=== PATIENT | male | born 1960 | race Caucasian/White ===

== ENCOUNTER 2018-01-31 01:01 | Inpatient (IN) | payer OTHER ==
[~2018-01-31] VITALS: Ht 175.3 cm; Wt 119.7 kg
[~2018-01-31 01:01] MED LIST: ANORO ELLIPTA1 EACH; ASPIRIN EC81 M1 PO; IMITREX50 M1 PO; LISINOPRIL20 M1 PO; VERAPAMIL ER180 M1 PO
--- NOTE | 2018-01-31 10:40 | RADIOLOGY REPORT ---
EXAMINATION: Intraoperative fluoroscopy CLINICAL INFORMATION: Right iliac arteriogram with angioplasty COMPARISON: Peripheral arterial testing 12/20/2017 TECHNIQUE: Intraoperative fluoroscopy was provided for use by Dr. Olguin. A total of 9 images were saved to PACS. A radiologist was not present during imaging. TOTAL FLUOROSCOPIC TIME: 5 minutes and 18 seconds FINDINGS\E\IMPRESSION: Intraoperative fluoroscopy provided for use by Dr. Olguin. Please see operative note for detailed findings.
--- NOTE | 2018-01-31 11:10 | Admission Core Measures ---
Acute Coronary Syndrome (CM) ACS Core Measures Acute Coronary Syndrome Diagnosis No Congestive Heart Failure (NEW) CHF Core Measures Congestive Heart Failure Diagnosis No Cerebrovascular Accident CVA Core Measures CVA/TIA Diagnosis No Venous Thromboembolism VTE Core Fercho (View Protocol) VTE Risk Factors Surgery No Mechanical VTE Prophylaxis d/t N/A MechProphylax Ordered No VTE Pharm Prophylaxis d/t NA PharmProphylax ordered Problem List As ranked by this Provider includes Assessment & Plan 1. S/P insertion of iliac artery stent HOME MEDS Home Med List Aspirin (Ecotrin*) 81 MG TABLET.DR 1 TAB PO DAILY CARDIAC/VASCULAR (Reported) Lisinopril 20 MG TABLET 1 TAB PO DAILY HTN (Reported) Sumatriptan Succinate (Imitrex) 50 MG TABLET 1 TAB PO AD PRN migraine ( Reported) Verapamil HCl (Verapamil ER) 180 MG TABLET.ER 1 TAB PO DAILY HTN (Reported)
--- NOTE | 2018-01-31 11:12 | Surg Short-stay <48hrs Dis Sum ---
Visit Information Visit Dates Admission Date: 01/31/18 Discharge Date: 01/31/18 Surgical Short Stay DC Summary Admission Diagnosis: Peripheral arterial disease Final Diagnosis: SAME, S/P ILIAC STENT Procedure(s): Iliac stent, right groin cutdown - see operative report, prevena vac placement Summary/Significant Findings: Pt underwent a right iliac stent placement via a right groin cutdown. He tolerated the procedure without immediate complications and was brought to the PACU in stable condition. He was transferred to the floor and post op was able to void, his pain was well controlled and he was able to ambulate. He was cleared for discharge home. Condition at Discharge: good Discharge Disposition: home or self care Discharge instructions provided to patient/family: Yes Post discharge follow-up plan: Dr Olguin in one week, call sooner if needed Copies to: Sharif CARMONA,Iggy
--- NOTE | 2018-01-31 11:16 | Patient Discharge Instructions ---
Discharge Instructions General Discharge Information You were seen/treated for: Peripheral arterial disease You had these procedures: Iliac stent placement vie a right groin cutdown, wound vacuum placement Watch for these problems: temp>101, drainage of wound, troubles with the wound vacuum Other wound care: Keep the area around the incision and the vac dry Special Instructions: Call for an appointment to be seen early next week in follow up with Dr Olguin and for wound vac removal Diet Continue normal diet: Yes Activity Activity Self Limited: Yes Acute Coronary Syndrome Inclusion Criteria At DC or during hospital stay patient has or had the following: ACS DIAGNOSIS No Discharge Core Measures Meds if any: Prescribed or Continued at Discharge Meds if any: NOT Prescribed or Continued at Discharge Congestive Heart Failure Inclusion Criteria At DC or during hospital stay patient has or had the following: CHF DIAGNOSIS No Discharge Core Measures Meds if any: Prescribed or Continued at Discharge Meds if any: NOT Prescribed or Continued at Discharge Cerebrovascular accident Inclusion Criteria At DC or during hospital stay patient has or had the following: CVA/TIA Diagnosis No Discharge Core Measures Meds if any: Prescribed or Continued at Discharge Meds if any: NOT Prescribed or Continued at Discharge Venous thromboembolism Inclusion Criteria VTE Diagnosis No VTE Type NONE VTE Confirmed by (Test) NONE Discharge Core Measures - Per Current guidelines, there needs to be overlap - treatment for the first 5 days of Warfarin therapy. - If discharged on Warfarin prior to 5 days of - overlap therapy, the patient will need to be - assessed for post discharge needs including - *Post discharge parental anticoagulation - *Warfarin and/or parental anticoagulation education - *Follow up date to check INR post discharge At least 5 days overlap therapy as Inpatient No Meds if any: Prescribed or Continued at Discharge Note: Overlap Therapy is Warfarin and Anticoagulant Meds if any: NOT Prescribed or Continued at Discharge
[2018-01-31] MEDS ORDERED: PLAVIX75 M1 PO (11:21)
[2018-01-31] MEDS ORDERED: PERCOCET 5-3251 EACH PO (11:21)
--- NOTE | 2018-01-31 12:29 | Operative Report ---
Operative/Inv Procedure Report Surgery Date: 01/31/18 Name of Procedure: 1. Right groin cutdown 2. aortogram 3. angioplasty and stenting of the right common and external iliac with icast 8mm x 59 stent. 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 I had previously performed a diagnostic angiogram in the office but given the location and length of the occlusion I decided to proceed with further intervention in the operating room as I felt there was a high probability of needing to do a fem-fem bypass. Therefore I brought the patient to the operating room with a plan to perform a right leg into and intervention possible fem-fem bypass. I explained the risks benefits alternative surgery informed consent was obtained placed to chart Operative/Procedure Note Note: The patient was brought to the operating room he was placed under general anesthesia in a supine position. A radial A-line Ariza were placed. We then performed a time out to verify the patient's name of data and MRN, in accordance with the [facility] time out policy. Prophylactic antibiotics were given prior to the procedure started. We then proceeded to prepare the patient's bilateral groins in a sterile fashion. I used the ultrasound to explore the right common femoral artery. However it appeared to be very small and given the patient's body habitus it was quite deep. As we would likely need to use a large sheath and possibly do a fem-fem bypass I decided to do a right groin cut down for access. I proceeded to janine the course of the common femoral artery with the ultrasound and then I used a 15 blade scalpel to make a skin incision in a vertical fashion over top of the artery. We then used the Bovie to dissect down through the subcutaneous tissue tying off any lymphatics or venous branches that we encountered. We then identified the common femoral artery and began circumferentially dissect this free and continued our dissection down to the profunda and superficial femoral artery. We then obtained control of the common femoral,superficial femoral, and profunda femoral artery with vessel loops. The patient was fully heparinized. I then used a micropuncture set to access the right common femoral artery. We placed a Luciano wire into the iliac artery and upsized to a 5-Kittitian sheath. Using an over .035 Glidewire and catheter we were able to cross the iliac occlusion into the aorta. We then shot an aortogram which demonstrated the follwing. The renal arteries were opacified but poorly visualized. It confirmed we were within the true lumen of the aorta. There was occlusion of right common iliac artery, the internal iliac artery, and the proximal external iliac artery. The mid and distal right external iliac artery appeared patent without any significant disease. The right common femoral artery also appeared patent without any significant disease. The left common external and internal iliac arteries were all patent without any significant disease. At this time we placed a stiff .035 wire into the aorta and we then predilated the area of occlusion with a 5 mm x 60 balloon. Followup angiogram showed a dissection within the right common iliac artery. We then used an 8 mm x 59 Icast stent which we deployed beginning from the proximal common iliac artery and extending into the external iliac artery. The internal iliac artery was occluded so we covered this with the stent. Completion angiogram showed significant improvement of flow but there was still an area of narrowing at the very proximal common iliac artery which we dilated once more with 8 mm balloon. At this time we were satisfied with our completion angiogram there is a very good pulse within the artery. We then proceeded to clamp the common femoral artery both proximally and distally and removed the sheath. We used the interrupted 6-0 Prolene to close the arteriotomy. We then confirmed there was good flow within the SFA and profunda artery. This time we were satisfied with her result we obtain hemostasis who some Gelfoam. Wound is copiously irrigated we then closed the deep layer with 2-0 Vicryl closed the subcutaneous and deep dermal layer with 3-0 Vicryl and the skin was closed with 4-0 Monocryl all counts were accurate at the end of the case a a sterile. A dressing was placed in the right groin incision. Patient was extubated and transferred to recovery room in stable condition.
[2018-01-31 12:49] VITALS: BP 132/74
[2018-01-31 14:41] VITALS: BP 130/80
--- NOTE | 2018-01-31 15:03 | PN- Vascular Surgery ---
Subjective Subjective: POC pt in bed with moderate right groin pain. says that paresthesias in right foot are improving. stillw ith pain in right foot. tolerating regular diet, no nausea. voiding, ambulating Objective Vital Signs and I&Os Vital Signs Date Time Temp Pulse Resp B/P B/P Pulse O2 O2 Flow FiO2 Mean Ox Delivery Rate 01/31 1441 97.8 81 20 130/80 94 Room Air 01/31 1249 98.8 69 18 132/74 96 Intake & Output 01/31 1600 01/31 0800 01/31 0000 01/30 1600 01/30 0800 01/30 0000 Intake Total 465 Output Total 250 Balance 215 Intake, IV 225 Intake, Oral 240 Number 0 Bowel Movements Output, Urine 250 Patient 264 lb Weight Physical Exam: gen- NAD resp- clear cardiac- RRR ext- riught groin with pravena in place on suction, no drainage in canister. No erythema or swelling arouind incision. No signs of hematoma. 1+ right DP pulse. PT no appreciated. distal sensory and motor function intact Current Medications: Current Medications Sig/Desire Start time Last Medication Dose Route Stop Time Status Admin Acetaminophen 650 MG Q6P PRN 01/31 1315 AC PO Acetaminophen 0 .STK-MED ONE 01/31 722 DC IV Albuterol Sulfate 2 PUF Q4P PRN 01/31 1315 AC INH Albuterol Sulfate 2 PUF Q4 PRN 01/31 1115 DC INH Aspirin Buffered 81 MG DAILY 02/01 900 DC PO Aspirin Buffered 81 MG DAILY 02/01 900 AC PO Clopidogrel Bisulfate 75 MG DAILY 02/01 900 AC PO Clopidogrel Bisulfate 150 MG ONCE ONE 01/31 1130 DC PO 01/31 1131 Dextrose/Sodium 1,000 ML .[id number] 01/31 1315 AC 01/31 Chloride IV 1346 Docusate Sodium 100 MG BID 01/31 2100 AC PO Fentanyl Citrate 0 .STK-MED ONE 01/31 0723 DC .ROUTE Hydromorphone HCl 0 .STK-MED ONE 01/31 722 DC .ROUTE Lisinopril 20 MG DAILY 02/01 900 DC PO Lisinopril 20 MG DAILY 02/01 900 AC PO Midazolam HCl 0 .STK-MED ONE 01/31 07 DC .ROUTE Ondansetron HCl 4 MG Q6P PRN 01/31 1315 AC IV Oxycodone/ 1 TAB Q4P PRN 01/31 1315 AC Acetaminophen PO Oxycodone/ 2 TAB Q4P PRN 01/31 1315 AC 01/31 Acetaminophen PO 1345 Sumatriptan Succinate 50 MG DAILY NEEDED PRN 01/31 1315 AC PO Sumatriptan Succinate 50 MG DAILY NEEDED PRN 01/31 1100 DC PO Verapamil HCl 180 MG DAILY 02/01 0900 DC PO Verapamil HCl 180 MG DAILY 02/01 0900 AC PO Zolpidem Tartrate 5 MG AT BEDTIME NEED.. 01/31 1315 AC PO Assessment/Plan Assessment/Plan 58yo M SP R groin cutdown for iliac stent placement POD0. stable pain management anticoagulation- plavix 150 today and then 75mg daily for the next 3 months prevena to stay in place overnight, will likely remove prior to DC reg diet OOB IVF overnight likely DC in AM Core Measures Venous Thromboembolism VTE Risk Factors Surgery No Mechanical VTE Prophylaxis d/t N/A MechProphylax Ordered No VTE Pharm Prophylaxis d/t NA PharmProphylax ordered
[2018-01-31 17:03] VITALS: BP 124/60
[2018-01-31 19:00] VITALS: BP 148/80
[2018-01-31 21:00] VITALS: BP 140/72
[2018-02-01 01:35] VITALS: BP 140/82
[2018-02-01 04:45] VITALS: BP 130/68
[2018-02-01 05:55] VITALS: BP 130/68
--- NOTE | 2018-02-01 08:52 | PN- Vascular Surgery ---
Subjective Subjective: No acute overnight events. Pt notes continued right foot pain and right groin pain, denies worsening. Has been oob to void and move bowels. Denies chest pain and shortness of breath. Denies nausea and vomitting, has tolerated diet. Objective Vital Signs and I&Os Vital Signs Date Time Temp Pulse Resp B/P B/P Pulse O2 O2 Flow FiO2 Mean Ox Delivery Rate 02/01 0555 97.7 84 16 130/68 18 0551 97.7 84 16 130/68 /18 0445 97.7 84 16 130/68 96 Room Air 02/01 0135 98.7 86 20 140/82 95 Room Air 01/31 2100 96.3 89 20 140/72 94 Room Air 01/31 1900 97.1 87 20 148/80 97 Room Air 01/31 1703 98.3 87 20 124/60 97 Room Air 01/31 1600 Room Air 01/31 1441 97.8 81 20 130/80 94 Room Air 01/31 1308 Room Air 01/31 1249 98.8 69 18 132/74 96 Intake & Output 02/01 1600 02/01 0800 02/01 0000 01/31 1600 01/31 0800 01/31 0000 Intake Total 850 1100 465 Output Total 0 250 Balance 850 1100 215 Intake, IV 600 300 225 Intake, Oral 250 800 240 Number 1 2 0 Bowel Movements Output, Other 0 Output, Urine 250 Patient 264 lb Weight Weight Reported by Patient Measurement Method Physical Exam: General: Alert and oriented x3, no acute distress Cardiac: RRR, s1s2 Pulm: CTA bilaterally, non-labored respiratory effort Abd: Non-tender, non-distended Surgical site: Right groin, pravena in place, holding suction, no erythema, groin soft Vascular assessment: Right foot: DP pulse palpable, PT pulse dopplerable Extremities: Moves all extremities, neurovascular status grossly intact. Bilateral calve soft and non-tender. Assessment/Plan Assessment/Plan This is a 58 year old male, POD 1, s/p R iliac stent, right groin cut down with placement of pravena. -DC iv fluids -Continue plavix 75 daily -Continue pravena for 7 days, to be removed in Dr. Olguin's office Wednesday -DC to home today Discussed with Dr. Olguin Core Measures Venous Thromboembolism VTE Risk Factors Surgery No Mechanical VTE Prophylaxis d/t N/A MechProphylax Ordered No VTE Pharm Prophylaxis d/t NA PharmProphylax ordered
[2018-02-01 10:00] LABS: ABSOLUTE BASOPHIL COUNT 0 /CUMM (0.0-0.2); ABSOLUTE EOSINOPHIL COUNT 0 /CUMM (0.0-0.7); ABSOLUTE GRANULOCYTE CT 14.5 /CUMM (1.4-6.5); ABSOLUTE LYMPH COUNT 1.8 /CUMM (1.2-3.4); ABSOLUTE MONOCYTE COUNT 1.8 /CUMM (0.10-0.60); BASOPHIL % 0 % (0.0-2.0); EOSINOPHIL % 0 % (0-5); GRANULOCYTE % 80.2 % (42.2-75.2); MEAN CORPUSCULAR HGB 32.6 PG (27.0-31.0); MEAN CORPUSCULAR HGB CONC 33.5 G/DL (33.0-37.0); MEAN CORPUSCULAR VOLUME 97.4 FL (80.0-94.0); MEAN PLATELET VOLUME 9.3 FL (7.4-10.4); PLATELET COUNT 257 /CUMM (130-400); RBC DISTRIBUTION WIDTH 13.9 % (11.5-14.5); RED BLOOD CELL CT 4.41 /CUMM (4.70-6.10); WHITE BLOOD CELL COUNT 18.1 /CUMM (4.8-10.8)
== END 2018-02-01 11:05 | DRG 181 ==
LOC: SDA 01:01 → ENRESERV 11:05 → ENTRNSPT 12:28 → EDTRNSPTSTS 12:33 → 2NA 12:45 → CMPTRNSPT 12:53 → ENTRNSPT 02-01 10:53 → EDTRNSPTSTS 02-01 10:56 → EDTRNSPT 02-01 10:56 → 2NA 02-01 11:05 → CMPTRNSPT 02-01 11:17
PROVIDERS: Physician Assistant Surgical
PROC: 041 Lower Arteries, Bypass (ICD-10-PCS; principal; 2018-01-31)
PROC: 047H3DZ Dilation of Right External Iliac Artery with Intraluminal Device, Percutaneous Approach (ICD-10-PCS; 2018-01-31)
PROC: 047C3ZZ Dilation of Right Common Iliac Artery, Percutaneous Approach (ICD-10-PCS; 2018-01-31)
PROC: B40D1ZZ Plain Radiography of Aorta and Bilateral Lower Extremity Arteries using Low Osmolar Contrast (ICD-10-PCS; 2018-01-31)
DX: I74.5 Embolism and thrombosis of iliac artery (principal); E66.9 Obesity, unspecified; Z68.39 Body mass index [BMI] 39.0-39.9, adult; Z87.891 Personal history of nicotine dependence; I10 Essential (primary) hypertension; J44.9 Chronic obstructive pulmonary disease, unspecified; E78.5 Hyperlipidemia, unspecified; R73.03 Prediabetes
CPT/HCPCS: 2NASP; 36415; 36592; 76000; 87086; C1725; C1874; J0131; J1644; J2405; J3490; J7042; Q2036; Q9967